=== PATIENT | female | born 2000 | race Hispanic/Latino ===

== ENCOUNTER → 2022-10-04 | Outpatient (CLI) | payer OTHER | LOC: M RAD 14:41 | PROVIDERS: ATTEND Obstetrics & Gynecology | DX: Z34.93 Encounter for supervision of normal pregnancy, unspecified, third trimester (principal); Z3A.33 33 weeks gestation of pregnancy ==

== ENCOUNTER → 2022-10-24 | Outpatient (CLI) | payer OTHER ==
[~2022-10-24] MED LIST: PRENTAB9 PO
[2022-10-24 11:03] LABS: HEMATOCRIT 39.9 % (36.0-47.0); HEMOGLOBIN 13.2 g/dl (12.0-15.5); MEAN CORPUSCULAR HEMOGLOBIN 31.9 pg (27.0-33.0); MEAN CORPUSCULAR HGB CONC 33.1 g/dl (32.0-36.5); MEAN CORPUSCULAR VOLUME 96.4 fl (80.0-96.0); PLATELET COUNT, AUTOMATED 243 10^3/uL (150-450); RED BLOOD COUNT 4.14 10^6/uL (4.00-5.40); WHITE BLOOD COUNT 8.4 10^3/uL (4.0-10.0)
[2022-10-24 11:12] LABS: CREATININE,RANDOM URINE 29.4 MG/DL
[2022-10-24 11:36] LABS: ALBUMIN 2.5 G/DL (3.2-5.2); ALKALINE PHOSPHATASE 359 U/L (46-116); ALT/SGPT 54 U/L (7.0-40); AST/SGOT 31 U/L (<34); BILIRUBIN,TOTAL 0.4 MG/DL (0.3-1.2); BLOOD UREA NITROGEN 9 MG/DL (9-23); CALCIUM LEVEL 9.2 MG/DL (8.5-10.1); CARBON DIOXIDE LEVEL 24 MMOL/L (20-31); CHLORIDE LEVEL 103 MMOL/L (98-107); CREATININE FOR GFR 0.72 MG/DL (0.55-1.30); GLUCOSE, FASTING 85 MG/DL (60-100); POTASSIUM SERUM 4.1 MMOL/L (3.5-5.1); SODIUM LEVEL 136 MMOL/L (136-145); TOTAL PROTEIN 7.4 G/DL (5.7-8.2)
[2022-10-24 15:54] LABS: TOTAL PROTEIN,RANDOM URINE 30.6 MG/DL (0.0-14.0)
== END ==
LOC: M LAB 10:05
PROVIDERS: ATTEND Obstetrics & Gynecology
DX: O14.90 Unspecified pre-eclampsia, unspecified trimester (principal)

== ENCOUNTER 2022-10-26 13:39 | Inpatient (IN) | payer OTHER ==
[~2022-10-26] VITALS: Ht 149.9 cm; Wt 58.8 kg
[2022-10-26] VITALS (17 sets, daily range): BP systolic 131–181; BP diastolic 71–112; O2SAT 98
[2022-10-26] MEDS ORDERED: PRENTAB9 PO (14:11)
[2022-10-26] MEDS ORDERED: LACTATED RINGER'S 1000 ML IV STA (14:32)
[2022-10-26] MEDS ORDERED: OXYTOCIN DRIP 30 UNITS in IV 1 EA IV PRN ×6 (14:35)
[2022-10-26] MEDS ORDERED: LIDOCAINE 1% MDV 20ML VIAL INFIL PRN (14:35)
[2022-10-26] MEDS ORDERED: TRANEXAMIC ACID INJection 1,000 MG in NS 100 ML IV PRN (14:35)
[2022-10-26] MEDS: LR 1,000 ML IV SCH (14:35)
[2022-10-26] MEDS ORDERED: CARBOPROST TROMETHAMINE 250 MCG/ML AMP IM PRN (14:35)
[2022-10-26] MEDS ORDERED: METHYLERGONOVINE MALEATE 0.2MG/ML 1ML VIAL IM PRN (14:35)
[2022-10-26 15:11] LABS: HEMATOCRIT 34.1 % (36.0-47.0); HEMOGLOBIN 11.5 g/dl (12.0-15.5); MEAN CORPUSCULAR HEMOGLOBIN 32.5 pg (27.0-33.0); MEAN CORPUSCULAR HGB CONC 33.7 g/dl (32.0-36.5); MEAN CORPUSCULAR VOLUME 96.3 fl (80.0-96.0); PLATELET COUNT, AUTOMATED 208 10^3/uL (150-450); RED BLOOD COUNT 3.54 10^6/uL (4.00-5.40); WHITE BLOOD COUNT 6.6 10^3/uL (4.0-10.0)
[2022-10-26 15:18] LABS: APPEARANCE, URINE HAZY (CLEAR); BACTERIA, URINE AUTO 1+ (NEGATIVE); BILIRUBIN, URINE AUTO NEGATIVE (NEGATIVE); BLOOD, URINE BLOOD NEGATIVE (NEGATIVE); COLOR, URINE AMBER (YELLOW); GLUCOSE, URINE (UA) AUTO NEGATIVE (NEGATIVE); KETONE, URINE AUTO NEGATIVE (NEGATIVE); LEUKOCYTE ESTERASE, URINE AUTO 2+ (NEGATIVE); MUCUS, URINE SMALL (NEGATIVE); NITRITE, URINE AUTO NEGATIVE (NEGATIVE); PROTEIN, URINE AUTO 2+ mg/dL (NEGATIVE); RBC, URINE AUTO 3 /HPF (0-3); SPECIFIC GRAVITY URINE AUTO 1.013 (1.002-1.035); SQUAMOUS EPITHELIAL CELL UR AU 5 /HPF (0-6); WBC, URINE AUTO 12 /HPF (0-3)
[2022-10-26 15:37] LABS: LDH LACTATE DEHYDROGENASE 193 U/L (120-246)
[2022-10-26 15:52] LABS: CREATININE,RANDOM URINE 99.8 MG/DL
[2022-10-26 15:54] LABS: TOTAL PROTEIN,RANDOM URINE 127.4 MG/DL (0.0-14.0)
[2022-10-26 16:06] LABS: ALBUMIN 2.3 G/DL (3.2-5.2); ALKALINE PHOSPHATASE 372 U/L (46-116); ALT/SGPT 57 U/L (7.0-40); AST/SGOT 27 U/L (<34); BILIRUBIN,TOTAL 0.4 MG/DL (0.3-1.2); BLOOD UREA NITROGEN 11 MG/DL (9-23); CALCIUM LEVEL 9.1 MG/DL (8.5-10.1); CARBON DIOXIDE LEVEL 24 MMOL/L (20-31); CHLORIDE LEVEL 105 MMOL/L (98-107); CREATININE FOR GFR 0.83 MG/DL (0.55-1.30); GLUCOSE, FASTING 92 MG/DL (60-100); POTASSIUM SERUM 4.1 MMOL/L (3.5-5.1); SODIUM LEVEL 139 MMOL/L (136-145); TOTAL PROTEIN 6.8 G/DL (5.7-8.2)
[2022-10-26] MEDS: miSOPROStol 50MCG 1/2 TABLET PO SCH ×2 (16:49→21:05)
[2022-10-27] VITALS (28 sets, daily range): BP systolic 105–162; BP diastolic 58–103; TEMP 98.4; O2SAT 96–98
[2022-10-27] MEDS: miSOPROStol 50MCG 1/2 TABLET PO SCH (00:45)
[2022-10-27] MEDS: LR 1,000 ML IV SCH ×5 (01:28→23:35)
[2022-10-27] MEDS ORDERED: ONDANSETRON 4MG 2ML VIAL IV ONE (02:40)
[2022-10-27] MEDS ORDERED: FENTANYL/ROPIVACAINE/NACL BAG 100 ML EPIDURAL SCH (03:05)
[2022-10-27] MEDS ORDERED: ePHEDrine SULFATE 25 MG/5 ML(5MG/ML) SYRINGE IVP PRN (03:05)
[2022-10-27] MEDS ORDERED: EPIDURAL/PCA KEYS XX PRN (03:05)
[2022-10-27] MEDS ORDERED: LR 500 ML IV PRN (03:05)
[2022-10-27] MEDS ORDERED: NALOXONE INJ 0.4MG/1ML VIAL IV PRN (03:05)
[2022-10-27] MEDS ORDERED: diphenhydrAMINE 50MG/ML VIAL IV PRN (03:05)
[2022-10-27] MEDS ORDERED: ONDANSETRON 4MG 2ML VIAL IV PRN ×2 (03:05→07:20)
[2022-10-27] MEDS ORDERED: ceFAZolin 2 GM/D5W 50 ML IV BAG As Ordered ONE (06:01)
[2022-10-27] MEDS ORDERED: BICITRA 30ML SOLN UDC PO ONE (06:05)
[2022-10-27] MEDS ORDERED: ceFAZolin SOD 2 GM in IV 1 EA IV ONE ×2 (06:05→12:00)
[2022-10-27] MEDS ORDERED: AZITHROMYCIN INJ 500 MG, VIAL MATE ADAPTER 1 EACH in NS 250 ML IV ONE (06:05)
[2022-10-27] MEDS ORDERED: LIDOCAINE 2% W/EPINEPHRINE 20ML VIAL **PRES FREE As Ordered ONE ×2 (06:06→06:07)
[2022-10-27] MEDS ORDERED: OXYTOCIN INJ 10UNITS/ML 1ML VIAL As Ordered ONE (06:11)
[2022-10-27] MEDS ORDERED: AZITHROMYCIN INJ 500MG VIAL As Ordered ONE (06:12)
[2022-10-27] MEDS ORDERED: MORPHINE PRES-FREE INJ 10 MG/10 ML VIAL As Ordered ONE (06:18)
[2022-10-27] MEDS ORDERED: propofoL 200 MG/20 ML VIAL As Ordered ONE (06:23)
[2022-10-27] MEDS ORDERED: ACETAMINOPHEN 1000MG 100ML IV BAG As Ordered ONE (06:27)
[2022-10-27] MEDS ORDERED: MIDAZOLAM INJ 2MG/2ML VIAL As Ordered ONE (06:28)
[2022-10-27] MEDS ORDERED: ONDANSETRON 4MG 2ML VIAL As Ordered ONE (06:31)
[2022-10-27 06:45] LABS: CORD GAS ABE V -6.8; CORD GAS HCO3 V 20.1 MMOL/L; CORD GAS O2 SAT V 83.4 %; CORD GAS PCO2 V 45.1 mmHg; CORD GAS PH V 7.267 UNITS; CORD GAS PO2 V 40.4 mmHg; CORD GAS SBC V 18.7 MMOL/L; CORD GAS TCO2 V 21.5 MMOL/L
[2022-10-27 06:46] LABS: CORD GAS ABE A -6.1; CORD GAS HCO3 A 23.6 MMOL/L; CORD GAS O2 SAT A 75.3 %; CORD GAS PH A 7.192 UNITS; CORD GAS PO2 A 37.4 mmHg; CORD GAS TCO2 A 25.6 MMOL/L
[2022-10-27] MEDS ORDERED: KETOROLAC 60MG 2ML VIAL As Ordered ONE (06:53)
[2022-10-27] MEDS ORDERED: ROCURONIUM BROMIDE 50MG/5ML VIAL As Ordered ONE (06:55)
[2022-10-27] MEDS ORDERED: METOCLOPRAMIDE INJ 10MG/2ML VIAL IV PRN ×2 (07:20→07:35)
[2022-10-27] MEDS ORDERED: PROMETHAZINE 25MG/ML 1ML VIAL IV PRN (07:20)
[2022-10-27] MEDS ORDERED: fentaNYL 100 MCG/2 ML INJECTION IV PRN (07:20)
[2022-10-27] MEDS ORDERED: oxyCODONE 5MG TAB PO PRN ×3 (07:20→07:35)
[2022-10-27] MEDS ORDERED: MORPHINE 2 MG/ML 1ML VIAL IV PRN (07:35)
[2022-10-27] MEDS ORDERED: RHOGAM 300MCG (1500IU) INJ IM SCH (07:35)
[2022-10-27] MEDS ORDERED: MOM 30ML SUSPENSION UDC PO PRN (07:35)
[2022-10-27] MEDS ORDERED: SIMETHICONE 80MG CHEW TAB PO PRN (07:35)
[2022-10-27] MEDS ORDERED: ONDANSETRON 4MG ORAL DISINTEGRATING TAB PO PRN (07:35)
[2022-10-27] MEDS ORDERED: DOCUSATE SODIUM 100MG CAPSULE PO PRN (07:35)
[2022-10-27] MEDS ORDERED: CARBOPROST TROMETHAMINE 250 MCG/ML AMP ONE (07:38)
[2022-10-27] MEDS: PRENATAL VITAMINS CHEWABLE TABLET PO SCH (09:00)
[2022-10-27] MEDS: ACETAMINOPHEN 500 MG TAB PO SCH ×2 (11:55→17:40)
[2022-10-27] MEDS: KETOROLAC 30 MG/ML 1ML VIAL IV SCH ×2 (14:07→20:15)
[2022-10-27] MEDS: NIFEdipine 30MG XL TAB PO SCH (16:29)
[2022-10-28 02:00] VITALS: BP 130/80; O2SAT 97
[2022-10-28] MEDS: KETOROLAC 30 MG/ML 1ML VIAL IV SCH (03:10)
[2022-10-28] MEDS: ACETAMINOPHEN 500 MG TAB PO SCH ×4 (05:39→19:34)
[2022-10-28 06:00] VITALS: BP 112/60; O2SAT 96
[2022-10-28 07:09] LABS: HEMATOCRIT 25.2 % (36.0-47.0); HEMOGLOBIN 8.5 g/dl (12.0-15.5); MEAN CORPUSCULAR HEMOGLOBIN 32.4 pg (27.0-33.0); MEAN CORPUSCULAR HGB CONC 33.7 g/dl (32.0-36.5); MEAN CORPUSCULAR VOLUME 96.2 fl (80.0-96.0); PLATELET COUNT, AUTOMATED 149 10^3/uL (150-450); RED BLOOD COUNT 2.62 10^6/uL (4.00-5.40); WHITE BLOOD COUNT 14.8 10^3/uL (4.0-10.0)
[2022-10-28] MEDS: LR 1,000 ML IV SCH ×2 (07:35→15:35)
[2022-10-28 10:00] VITALS: BP 119/81; O2SAT 96
[2022-10-28] MEDS: PRENATAL VITAMINS CHEWABLE TABLET PO SCH (11:25)
[2022-10-28] MEDS: IBUPROFEN 800 MG TAB PO SCH ×2 (11:26→19:34)
[2022-10-28 15:50] VITALS: BP 122/74; O2SAT 97
[2022-10-28] MEDS: NIFEdipine 30MG XL TAB PO SCH (16:10)
[2022-10-28 17:50] VITALS: BP 124/76; O2SAT 95
[2022-10-28 22:00] VITALS: BP 113/65; O2SAT 96
[2022-10-29 02:00] VITALS: BP 119/72; O2SAT 97
[2022-10-29] MEDS: IBUPROFEN 800 MG TAB PO SCH ×2 (02:00→10:35)
[2022-10-29 06:00] VITALS: BP 135/70; O2SAT 97
[2022-10-29] MEDS: ACETAMINOPHEN 500 MG TAB PO SCH ×3 (06:30→13:43)
[2022-10-29] MEDS ORDERED: NIFE1TAB52 PO (08:46)
[2022-10-29] MEDS ORDERED: IBUP80TA PO (08:46)
[2022-10-29] MEDS ORDERED: ACET-683 PO (08:46)
[2022-10-29] MEDS ORDERED: MEASLES,MUMPS,RUBELLA VACCINE INJ (MMR-II) SC.IMMUN ONE (09:00)
[2022-10-29] MEDS: PRENATAL VITAMINS CHEWABLE TABLET PO SCH (10:33)
[2022-10-29 15:01] VITALS: BP 136/84
[2022-10-29] MEDS: NIFEdipine 30MG XL TAB PO SCH (15:01)
== END 2022-10-29 15:54 | disposition home or self-care (01) | DRG 773 ==
LOC: M LDI 13:39 → M OBS 10-27 08:42
PROVIDERS: ADMIT Obstetrics & Gynecology; ATTEND Obstetrics & Gynecology
PROC: 3E033VJ Introduction of Other Hormone into Peripheral Vein, Percutaneous Approach (ICD-10-PCS; 2022-10-26)
PROC: 10D00Z1 Extraction of Products of Conception, Low, Open Approach (ICD-10-PCS; principal; 2022-10-27 07:17)
DX: O14.04 Mild to moderate pre-eclampsia, complicating childbirth (principal); Z3A.37 37 weeks gestation of pregnancy; O40.3XX0 Polyhydramnios, third trimester, not applicable or unspecified; O76 Abnormality in fetal heart rate and rhythm complicating labor and delivery; Q51.810 Arcuate uterus; O75.89 Other specified complications of labor and delivery; Z37.0 Single live birth

== ENCOUNTER → 2023-12-12 | Outpatient (REF) | payer OTHER ==
[~2023-12-12] MED LIST changes: +ACET-683 PO; +IBUP80TA PO; +NIFE1TAB52 PO
== END ==
LOC: M PLALAB 09:05
PROVIDERS: ATTEND Obstetrics & Gynecology
DX: O26.843 Uterine size-date discrepancy, third trimester (principal)

== ENCOUNTER → 2024-01-02 | Outpatient (REF) | payer OTHER | LOC: M PLALAB 14:29 | PROVIDERS: ATTEND Obstetrics & Gynecology | DX: Z36.85 Encounter for antenatal screening for Streptococcus B (principal); Z3A.35 35 weeks gestation of pregnancy ==

== ENCOUNTER → 2024-10-06 | Outpatient (REF) | payer OTHER | LOC: M SFHCWAGY 09:28 | PROVIDERS: ATTEND Advanced Practice Midwife | DX: Z12.4 Encounter for screening for malignant neoplasm of cervix (principal) ==